=== PATIENT | female | born 1990 | race African-American/Black ===

== ENCOUNTER 2019-06-29 07:56 | Outpatient (CLI) | payer OTHER, SELFPAY ==
--- NOTE | ~2019-06-29 | US_ITS ---
EXAMINATION: US pelvic complete w TV DATE: 06/29/2019 10:26 INDICATION: Left ovarian mass. TECHNIQUE: Multiple transabdominal and endovaginal sonographic images of the pelvis were obtained. COMPARISON: 02/08/2019 FINDINGS: The uterus measures 9.6 x 7.3 x 7.4 cm. The endometrial complex measures 11 mm in thickness. Are het erogeneous iso- to slightly hypoechoic masses consistent with fibroids measuring 4.7 x 3.9 x 4.2 cm a t the right side of the uterine fundus and 4.8 x 4.7 x 4.9 cm at the posterior uterine body. The righ t ovary measures 3.4 x 1.8 x 1.2 cm. The left ovary measures 4.9 x 2.3 x 2.6 cm. Subcentimeter anecho ic cysts are seen at both ovaries. Normal vascular flow to both ovaries on color Doppler. There is a small amount of free fluid in the left deep pelvis. IMPRESSION: 1. Fibroid uterus. 2. Interval resolution of the previously 5.2 cm hypoechoic left ovarian mass which likely represented a hemorrhagic cyst. Reviewed, dictated and finalized at location A. HANDLER SORTER IMPRESSION: 1. Fibroid uterus. 2. Interval resolution of the previously 5.2 cm hypoechoic left ovarian mass wh ich likely represented a hemorrhagic cyst.
== END 2019-06-29 07:57 | disposition home or self-care (01) ==
PROVIDERS: Visit Provider Obstetrics & Gynecology Gynecology
DX: N83.209 Unspecified ovarian cyst, unspecified side (principal); D25.9 Leiomyoma of uterus, unspecified
CPT/HCPCS: 76830; 76856

== ENCOUNTER 2020-03-31 07:25 | Emergency (ER) | payer OTHER, SELFPAY ==
[2020-03-31 08:01] VITALS: BP 136/91; PULSE 100; RESP 18; TEMP 36.9; O2SAT 99
[2020-03-31 09:25] VITALS: BP 122/83; PULSE 65; RESP 16; O2SAT 97
--- NOTE | 2020-03-31 09:30 | ED.EAR ---
HPI - Ear Problem General Chief complaint: Ear Stated complaint: painful knot right side of neck Time Seen by Provider: 03/31/20 09:29 Source: patient Mode of arrival: ambulatory Limitations: no limitations History of Present Illness HPI Narrative: Patient is a healthy 30-year-old who presented for evaluation of right sided lymph node tenderness and ear pain. Patient reports mild discharge from the right ear. No bloody discharge. Patient denies fever, chills, sore throat or congestion. She reports lymph node that is swollen near to her right ear which is tender. Patient denies any cough or shortness of breath. Related Data Allergies Allergy/AdvReac Type Severity Reaction Status Date / Time No Known Allergies Allergy Verified 03/31/20 08:04 Review of Systems Review of Systems: Narrative: CONSTITUTIONAL: Denies fever HEENT: Reports right ear pain, swollen lymph node CARDIOVASCULAR: Denies chest pain RESPIRATORY: Denies cough or dyspnea. GASTROINTESTINAL: Denies abdominal pain SKIN: Denies rash MUSCULOSKELETAL: Denies back pain NEUROLOGIC: Denies headache [facility] Past Medical History Medical History (Updated 03/31/20 @ 10:20 by Marilyn Katz MD) Abnormal uterine bleeding Anemia Fibroids Social History Social History (Updated 03/31/20 @ 10:17 by Marilyn Katz MD) Smoking status: Never smoker Alcohol intake: never Substance use: never Gender identity (if verbalized by the patient): Female Exam Narrative: Exam Narrative: GENERAL: Awake, alert, conversant HEAD: Normocephalic, atraumatic. EYES: PERRLA and EOMI. ENT: Nares clear, no rhinorrhea or epistaxis. Mucous membranes moist. Right tympanic membrane with evidence of serous effusion. No rupture/perforation. No erythema posterior to the pinna. No pinna tenderness with retraction. Left tympanic membrane normal. NECK: Supple. Right anterior cervical lymph node, approximately 5 mm, tender, no fluctuance, mobile. CHEST: No respiratory distress, breathing even and non labored HEART: Regular rate, sinus rhythm ABDOMEN:Non distended, non tender EXTREMITIES: Normal range of motion. No edema. SKIN: Warm, dry, no rash. NEURO:No focal deficits. Alert and oriented x3 Course Vital Signs Vital signs: Vital Signs Temperature 36.9 C 03/31/20 08:01 Pulse Rate 100 03/31/20 08:01 Respiratory Rate 18 03/31/20 08:01 Blood Pressure 136/91 H 03/31/20 08:01 Pulse Oximetry 99 03/31/20 08:01 Temperature 36.9 C 03/31/20 08:01 Pulse Rate 65 03/31/20 09:25 Respiratory Rate 16 03/31/20 09:25 Blood Pressure 122/83 03/31/20 09:25 Pulse Oximetry 97 03/31/20 09:25 Medical Decision Making MDM Narrative Medical decision making narrative: Patient presented for evaluation of tender lymph node and diagnosed with right serous otitis media with reactive lymphadenopathy of the right anterior cervical chain. Patient otherwise hemodynamically stable, well-appearing, no airway compromise. No other Covid type symptoms. Patient will be started on antibiotics and was discharged home. She was vies to have follow-up with a primary care physician and given referral for follow-up. Vital Signs Vital Signs: Vital Signs Temperature 36.9 C 03/31/20 08:01 Pulse Rate 100 03/31/20 08:01 Respiratory Rate 18 03/31/20 08:01 Blood Pressure 136/91 H 03/31/20 08:01 Pulse Oximetry 99 03/31/20 08:01 Temperature 36.9 C 03/31/20 08:01 Pulse Rate 65 03/31/20 09:25 Respiratory Rate 16 03/31/20 09:25 Blood Pressure 122/83 03/31/20 09:25 Pulse Oximetry 97 03/31/20 09:25 Discharge Plan Discharge Clinical Impression: Otitis media Patient Disposition: Home, Self-Care Condition: Stable Instructions: Antibiotic Form, Ear Infection (ED) Additional Instructions: Please contact your primary care physician for follow up from this visit. You have been given a list of primary care providers are accepting new pat
[2020-03-31 11:14] VITALS: BP 117/73; PULSE 68; RESP 16; O2SAT 100
== END 2020-03-31 11:15 | disposition home or self-care (01) ==
PROVIDERS: Emergency Provider Emergency Medicine
DX: H66.91 Otitis media, unspecified, right ear (principal); Z86.2 Personal history of diseases of the blood and blood-forming organs and certain disorders involving the immune mechanism
CPT/HCPCS: 99283

== ENCOUNTER 2020-06-17 07:24 | Outpatient (CLI) | payer OTHER, SELFPAY ==
--- NOTE | ~2020-06-17 | US_ITS ---
US pelvic complete w TV DATE: 06/17/2020 11:42 INDICATION: Pelvic pain TECHNIQUE: Real-time imaging via transabdominal and transvaginal approaches COMPARISON: 06/29/2019 pelvic ultrasound examination FINDINGS: The uterus measures 12.2 cm height, 8.9 cm AP and 10.8 cm transverse dimension. There is he terogeneous echotexture of the uterus with fibroids measuring up to 5.8 and 7.5 cm. The central endometrial echo is not well demonstrated. Endometrial mass cannot be excluded. The right ovary is not visualized. Left ovary measures 2.2 x 1.4 x 1.6 cm. There is vascular flow to the left ovary. No pelvic mass or abnormal pelvic free fluid collection is detected. IMPRESSION: Enlarged fibroid uterus Endometrial echo is not well demonstrated; endometrial mass lesion cannot be excluded. Reviewed, dictated and finalized at Location [facility]. Reviewed, dictated and finalized at location A. SEALER IMPRESSION: Enlarged fibroid uterus Endometrial echo is not well demonstrated; endometrial mass lesion cannot be ex cluded.
== END 2020-06-17 07:25 | disposition home or self-care (01) ==
LOC: ANHIMG 07:33
PROVIDERS: Visit Provider Nurse Practitioner
DX: R10.2 Pelvic and perineal pain (principal); D25.9 Leiomyoma of uterus, unspecified
CPT/HCPCS: 76830; 76856

== ENCOUNTER 2020-11-30 20:06 | Emergency (ER) | payer OTHER, SELFPAY ==
--- NOTE | ~2020-11-30 | CT_ITS ---
EXAMINATION: CT abdomen pelvis w con DATE: 11/30/2020 22:59 INDICATION: Left lower quadrant abdominal pain. TECHNIQUE: Computed tomography (CT) of the abdomen and pelvis was performed with 100 mL Omnipaque-350 intravenous contrast. Automated exposure control and iterative reconstruction technique were employe d. The dose-length product was 1286.94 mGy-cm. COMPARISON: None FINDINGS: Mild dependent atelectasis in the left lower lobe. Heart size is normal. No pericardial or pleural ef fusion. There are a few subcentimeter hepatic cyst. Gallbladder, spleen, pancreas, bilateral adrenal glands and kidneys are normal. Bowels including the appendix are normal 7.0 and 5.4 cm uterine fibroi ds in the posterior and anterior uterine body respectively. Bladder is normal. Small amount of likely physiologic free fluid in the cul-de-sac and left adnexal region. No abscess or free intraperitoneal gas. No pathologically enlarged abdominal or pelvic lymphadenopathy. Very small fat-containing umbil ical hernia. Bones are unremarkable. IMPRESSION: 1. A couple large uterine fibroids and small amount of likely physiologic free fluid in the pelvis. Reviewed, dictated and finalized at location A.
[2020-11-30 20:38] VITALS: BP 122/79; PULSE 104; RESP 18; TEMP 36.5; O2SAT 100
[2020-11-30 21:04] LABS: Basophils Percent Auto 0.1 % (0.2-1.2); Eosinophils Percent Auto 0.1 % (0-4.4); Hematocrit 26.6 % (37.0-47.0); Hemoglobin 7.3 g/dL (12.0-15.0); Immature Granulocyte Absolute 0.03 K/mm3 (0.00-0.031); Immature Granulocyte Percent A 0.4 % (0-0.5); Lymphocytes Absolute Auto 1.06 K/mm3 (0.9-3.2); Lymphocytes Percent Auto 14.9 % (18.3-44.2); Mean Corpuscular HGB Conc 27.4 g/dl (32-36); Mean Corpuscular Hemoglobin 18.5 pg (26-34); Mean Corpuscular Volume 67.3 fl (80-100); Monocytes Absolute Auto 0.4 K/mm3 (0.1-0.6); Neutrophils Absolute Auto 5.6 K/mm3 (1.3-6.7); Neutrophils Percent Auto 78.5 % (45.5-73.1); Platelet Count Result 701 k/mm3 (150-375); Red Blood Count 3.95 M/mm3 (4.2-5.4); Red Cell Distribution Width 19.2 % (11.5-14.5); White Blood Count 7.1 K/mm3 (4.5-10.0)
[2020-11-30 21:15] LABS: Alanine Aminotransferase 19 U/L (4-35); Albumin Level 4.5 g/dL (3.5-5.1); Alkaline Phosphatase 106 U/L (38-126); Anion Gap 10 mmol/L (8-16); Aspartate Amino Transferase 32 U/L (14-36); Bilirubin,Total 0.8 mg/dL (0.2-1.3); Blood Urea Nitrogen 8 mg/dL (7-17); Calcium 9.7 mg/dL (8.4-10.2); Carbon Dioxide 24 mmol/L (22-30); Chloride 103 mmol/L (98-107); Estimated CRCL calculation 126 ml/min; Estimated Glomerular Filt Rate > 60; Glucose 96 mg/dL (65-110); Lipase 79 U/L (23-300); Potassium 4.3 mmol/L (3.4-5.0); Sodium 137 mmol/L (137-145)
[2020-11-30 21:30] LABS: Lymphocytes Absolute Manual 0.92 K/mm3 (1.1-4.5); Monocytes Absolute Manual 0.35 K/mm3 (0.1-0.90); Monocytes Percent Manual 5 % (3-9); Neutrophils Percent Manual 82 % (46-73); Platelet Estimate Increased (Adequate); Total Cells Counted 100
[2020-11-30 21:31] LABS: Anisocytosis 3+ (NORMAL); Hypochromasia 2+ (NORMAL); Ovalocytes 1+ (NORMAL)
[2020-11-30 21:34] LABS: Add Urine Microscopic? YES; Appearance Urine Clear (Clear); Bacteria Urine Trace /hpf; Bilirubin Urine Negative (Negative); Blood Urine Negative (Negative); Color Urine Yellow (Yellow); Glucose Urine UA Negative (Negative); Ketones Urine Negative (Negative); Leukocyte Esterase Ur Negative LEU/UL (Negative); Mucus Urine Heavy /lpf; Nitrate Urine Negative (Negative); Protein Urine 1+ mg/dL (Negative); RBC Urine 0-2 /hpf (0-2); Specific Grav Ur 1.028 (1.001-1.035); Squamous Epithelial Cell Urine Many /hpf (Few)
[2020-11-30 22:11] VITALS: BP 118/74; PULSE 102; RESP 15; O2SAT 100
[2020-11-30 22:24] LABS: Beta HCG Quantitative < 2.39 mIU/ML
--- NOTE | 2020-11-30 22:27 | ED.GENADULT ---
HPI - General Adult General Chief complaint: Abdominal Pain Stated complaint: Abd and pelvic pain Time Seen by Provider: 11/30/20 21:51 History of Present Illness HPI narrative: Patient 21-year-old female presents the emergency department with chief complaint of abdominal pain. The patient reports started having discomfort in the left lower quadrant of her abdomen today patient states that sharp states is worse with movement and improved with rest. Patient denies fever denies dysuria denies vaginal discharge. The patient reports that she has had prior surgeries for 2 ectopic pregnancies. Patient states that the discomfort is not improved by anything. Related Data Home Medications Medication Instructions Recorded Confirmed Multivitamin W/Vitamin C 11/30/20 Allergies Allergy/AdvReac Type Severity Reaction Status Date / Time No Known Allergies Allergy Verified 11/30/20 22:05 Review of Systems Review of Systems: Narrative: A 10 system review of systems was completed on the patient and is negative except for what is stated in the HPI. Nursing and ancillary documentation was reviewed. [facility] Past Medical History Medical History Abnormal uterine bleeding Anemia Fibroids Social History Social History Smoking status: Never smoker Alcohol intake: never Substance use: never Gender identity (if verbalized by the patient): Female Exam Narrative: Exam Narrative: GENERAL: Well-appearing, well-nourished, and in no acute distress. HEAD: Normocephalic, atraumatic. EYES: PERRLA and EOMI. ENT: Nares clear, no rhinorrhea or epistaxis. Mucous membranes moist. NECK: Supple. CHEST: Clear to auscultation. No respiratory distress. HEART: Regular rate and rhythm. No murmur heard. Normal peripheral pulses. ABDOMEN: Soft, tenderness to palpation of the left lower quadrant, nondistended, normal active bowel sounds. EXTREMITIES: Normal range of motion. No edema. SKIN: Warm, dry, no rash. NEURO: No focal deficits. Alert and oriented x3. PSYCH: Normal mood and affect. Course Vital Signs Vital signs: Vital Signs Temperature 36.5 C 11/30/20 20:38 Pulse Rate 104 H 11/30/20 20:38 Respiratory Rate 18 11/30/20 20:38 Blood Pressure 122/79 11/30/20 20:38 Pulse Oximetry 100 11/30/20 20:38 Temperature 36.5 C 11/30/20 20:38 Pulse Rate 102 H 11/30/20 22:11 Respiratory Rate 15 11/30/20 22:11 Blood Pressure 118/74 11/30/20 22:11 Pulse Oximetry 100 11/30/20 22:11 Medical Decision Making Vital Signs Vital Signs: Vital Signs Temperature 36.5 C 11/30/20 20:38 Pulse Rate 104 H 11/30/20 20:38 Respiratory Rate 18 11/30/20 20:38 Blood Pressure 122/79 11/30/20 20:38 Pulse Oximetry 100 11/30/20 20:38 Temperature 36.5 C 11/30/20 20:38 Pulse Rate 102 H 11/30/20 22:11 Respiratory Rate 15 11/30/20 22:11 Blood Pressure 118/74 11/30/20 22:11 Pulse Oximetry 100 11/30/20 22:11 Lab Data Result diagrams: 11/30/20 20:58 11/30/20 20:58 Labs: Lab Results 11/30/20 11/30/20 11/30/20 Range/Units 20:57 20:58 20:58 WBC 7.1 (4.5-10.0) K/mm3 RBC 3.95 L (4.2-5.4) M/mm3 Hgb 7.3 L (12.0-15.0) g/dL Hct 26.6 L (37.0-47.0) % MCV 67.3 L (80-100) fl MCH 18.5 L (26-34) pg MCHC 27.4 L (32-36) g/dl RDW 19.2 H (11.5-14.5) % Plt Count 701 H (150-375) k/mm3 MPV 8.0 (7.4-10.4) fl Immature Gran % (Auto) 0.4 (0-0.5) % Neut % (Auto) 78.5 H (45.5-73.1) % Lymph % (Auto) 14.9 L (18.3-44.2) % Real % (Auto) 6.0 (2.6-8.5) % Eos % (Auto) 0.1 (0-4.4) % Baso % (Auto) 0.1 L (0.2-1.2) % Lymph # (Auto) 1.06 (0.9-3.2) K/mm3 Real # (Auto) 0.4 (0.1-0.6) K/mm3 Eos # (Auto) 0.0 (0-0.3) K/mm3 Baso # (Auto) 0.0 (0.0-0.1) K/mm3 Abs Immat Gran (aut
[2020-11-30] MEDS: SODIUM CHLORIDE 0.9% IV 1,000 ML 999 ML IV CONT (23:22)
[2020-11-30] MEDS: KETOROLAC 30 MG/ML VIAL (*BKC) IV PUSH (23:24)
[2020-11-30] MEDS: ONDANSETRON INJ 4 MG/2 ML VIAL IV PUSH (23:24)
[2020-12-01 01:13] VITALS: BP 110/67; PULSE 95; RESP 16; O2SAT 99
== END 2020-11-30 23:59 | disposition home or self-care (01) ==
PROVIDERS: Emergency Provider Emergency Medicine
DX: R10.32 Left lower quadrant pain (principal); D64.9 Anemia, unspecified
CPT/HCPCS: 36415; 74177; 80053; 81001; 81025; 83690; 84702; 85025; 96361; 96374; 96375; 99284; J1885; J2405; J7030; Q9967

== ENCOUNTER → 2021-11-28 12:42 | Outpatient (CLI) | payer BC, SELFPAY ==
--- NOTE | ~2021-11-28 | US_ITS ---
This report was recreated on 12/13/2021. Original report was signed by by Agus Box M.D. on 11/28/2021 13:58 CDT US pelvic complete w TV DATE: 11/28/2021 13:39 INDICATION: Pelvic pain TECHNIQUE: Real-time imaging via transabdominal and transvaginal approaches COMPARISON: 11/30/2020 CT abdomen pelvis FINDINGS: There is a large lobular uterus measuring up to 11.4 centers height, 8 cm AP dimension with multiple fibroids measuring up to 6 cm. Approximately 2.7 x 6 cm septated left ovarian cyst. The right ovary is not visualized. No abnormal pelvic free fluid collection is detected. IMPRESSION: Lobular enlarged uterus with multiple fibroids measuring up to 6 cm Septated up to 2.7 x 6 cm left ovarian cyst Reviewed, dictated and finalized at Location [facility]. Reviewed, dictated and finalized at location A. Dictated By: Agus Box MD 11/28/21 1352 Signed By: <Electronically signed by Agus Box MD in [place]> 11/28/21 6050 [facility]
--- NOTE | ~2021-11-28 | US_ITS ---
US pelvic complete w TV DATE: 11/28/2021 13:39 INDICATION: Pelvic pain TECHNIQUE: Real-time imaging via transabdominal and transvaginal approaches COMPARISON: 11/30/2020 CT abdomen pelvis FINDINGS: There is a large lobular uterus measuring up to 11.4 centers height, 8 cm AP dimension with multiple fibroids measuring up to 6 cm. Approximately 2.7 x 6 cm septated left ovarian cyst. The right ovary is not visualized. No abnormal pelvic free fluid collection is detected. IMPRESSION: Lobular enlarged uterus with multiple fibroids measuring up to 6 cm Septated up to 2.7 x 6 cm left ovarian cyst Reviewed, dictated and finalized at Location [facility]. Reviewed, dictated and finalized at location A.
== END ==
LOC: EXPGOSH 12:43 → EXPGOSHRAD 12-02 15:04
PROVIDERS: PCP Obstetrics & Gynecology Gynecology; Visit Provider Obstetrics & Gynecology Gynecology
DX: D25.9 Leiomyoma of uterus, unspecified (principal); N83.202 Unspecified ovarian cyst, left side
CPT/HCPCS: 76830; 76856

== ENCOUNTER 2021-12-03 08:17 | Outpatient (CLI) | payer BC, SELFPAY ==
[2021-12-03 08:54] LABS: Hematocrit 26.9 % (37.0-47.0); Hemoglobin 7.1 g/dL (12.0-15.0); Mean Corpuscular HGB Conc 26.4 g/dl (32-36); Mean Corpuscular Hemoglobin 17.5 pg (26-34); Mean Corpuscular Volume 66.3 fl (80-100); Mean Platelet Volume 8.3 fl (7.4-10.4); Platelet Count Result 641 k/mm3 (150-375); Red Blood Count 4.06 M/mm3 (4.2-5.4); Red Cell Distribution Width 18.6 % (11.5-14.5); White Blood Count 5.5 K/mm3 (4.5-10.0)
== END 2021-12-03 08:18 | disposition home or self-care (01) ==
LOC: ANHLAB 08:21
PROVIDERS: PCP Obstetrics & Gynecology Gynecology; Visit Provider Obstetrics & Gynecology Gynecology
DX: N92.0 Excessive and frequent menstruation with regular cycle (principal)
CPT/HCPCS: 36415; 85027

== ENCOUNTER 2021-12-09 11:17 | Outpatient (CLI) | payer BC, SELFPAY ==
[2021-12-12 02:49] LABS: CA-125 24 U/mL (<35)
== END 2021-12-09 11:18 | disposition home or self-care (01) ==
PROVIDERS: PCP Obstetrics & Gynecology Gynecology; Visit Provider Obstetrics & Gynecology Gynecology
DX: R19.00 Intra-abdominal and pelvic swelling, mass and lump, unspecified site (principal)
CPT/HCPCS: 36415; 86304

== ENCOUNTER → 2022-01-22 11:20 | Outpatient (CLI) | payer BC, SELFPAY ==
--- NOTE | ~2022-01-22 | US_ITS ---
EXAMINATION: US pelvic complete w TV DATE: 01/22/2022 12:01 INDICATION: PELVIC PAIN TECHNIQUE: Multiple transabdominal and endovaginal sonographic images of the pelvis were obtained. COMPARISON: 11/28/2021 FINDINGS: Uterus: 12.1 x 8.1 x 7.4 cm. Endometrial complex measures 9 mm. Uterine fibroids are present, the lar gest measuring up to 6.6 and 4. cm. Right Ovary: 3.4 x 1.8 x 1.9 cm. Vascular flow is present. 2.6 x 1.2 x 1.4 cm simple cyst. Left Ovary: 3.0 x 1.2 x 1.9 cm. Vascular flow is present. There is no free fluid in the pelvis. IMPRESSION: Interval resolution of the previously detected left ovarian cyst. Fibroid uterus. Reviewed, dictated and finalized at location K. IMPRESSION: Interval resolution of the previously detected left ovarian cyst. Fibroid uteru s.
== END ==
PROVIDERS: PCP Internal Medicine; Visit Provider Obstetrics & Gynecology Gynecology
DX: N83.201 Unspecified ovarian cyst, right side (principal); D25.9 Leiomyoma of uterus, unspecified
CPT/HCPCS: 76830; 76856

== ENCOUNTER 2022-10-06 02:56 | Emergency (ER) | payer BC, SELFPAY ==
--- NOTE | ~2022-10-06 | CT_ITS ---
EXAMINATION: CT abdomen pelvis w con DATE: 10/06/2022 07:02 INDICATION: Right lower quadrant abdominal pain. TECHNIQUE: Computed tomography (CT) of the abdomen and pelvis was performed with 100 mL Omnipaque 350 intravenous contrast. Automated exposure control and iterative reconstruction technique were employe d. The dose-length product was 1134.44 mGy-cm. COMPARISON: CT abdomen and pelvis 11/30/2020 FINDINGS: The visualized portions of the lung bases demonstrate minimal atelectasis. No pleural effus ion. The heart size is normal. No pericardial effusion. There are cysts in the liver measuring up to 7 mm. The gallbladder, spleen, pancreas, adrenal glands, and kidneys are normal. There are fibroids i n uterus measuring up to 7.6 cm. The appendix is normal. There are dilated loops of jejunum in left a bdomen with desiccated stool suggesting slow transit. There is a moderate volume of stool in the colo n. There is physiologic fluid in the pelvis. There are no pathologically enlarged lymph nodes. The deandra roxana are unremarkable. IMPRESSION: 1. Dilated loops of jejunum in left abdomen with desiccated stool suggesting slow transit, likely mateo namic ileus. 2. Uterine fibroids. Reviewed, dictated and finalized at location A. IMPRESSION: 1. Dilated loops of jejunum in left abdomen with desiccated stool suggesting sl ow transit, likely adynamic ileus. 2. Uterine fibroids.
[2022-10-06 03:18] VITALS: BP 127/88; PULSE 102; RESP 24; TEMP 36.7; O2SAT 99
[2022-10-06] MEDS: MORPHINE SULFATE (*CRX) 4 MG/ML INJ IV PUSH (03:37)
[2022-10-06] MEDS: ONDANSETRON INJ 4 MG/2 ML VIAL IV PUSH (03:37)
[2022-10-06] MEDS: SODIUM CHLORIDE 0.9% IV 1,000 ML 999 ML IV CONT (03:37)
--- NOTE | 2022-10-06 03:37 | ED.GENADULT ---
HPI - General Adult General Chief complaint: Abdominal Pain Stated complaint: pelvic pain Time Seen by Provider: 10/06/22 03:06 History of Present Illness HPI narrative: Patient is a 32-year-old female who presents the emergency department with chief complaint of abdominal pain. Patient reports that for the last several days she had an uncomfortable feeling in her pelvis patient states that he got worse today reports that she is not able to get comfortable and reports the pain does radiate to her back. Patient reports that it is a sharp pain and reports that she has had no vomiting no diarrhea denies blood in her stool or black tarry stool denies hematuria. Related Data Home Medications Medication Instructions Recorded Confirmed Multivitamin W/Vitamin C 11/30/20 Allergies Allergy/AdvReac Type Severity Reaction Status Date / Time No Known Allergies Allergy Verified 11/30/20 22:05 Review of Systems Review of Systems: A 10 system review of systems was completed on the patient and is negative except for what is stated in the HPI. Nursing and ancillary documentation was reviewed. PMFSH Past Medical History Medical History Abnormal uterine bleeding Anemia Fibroids Social History Social History Smoking status: Never smoker Alcohol intake: never Substance use: never Gender identity (if verbalized by the patient): Female Exam Narrative: GENERAL: Well-appearing, well-nourished, and in no acute distress. HEAD: Normocephalic, atraumatic. EYES: PERRLA and EOMI. ENT: Nares clear, no rhinorrhea or epistaxis. Mucous membranes moist. NECK: Supple. CHEST: Clear to auscultation. No respiratory distress. HEART: Regular rate and rhythm. No murmur heard. Normal peripheral pulses. ABDOMEN: Soft, tender in the right upper quadrant right lower quadrant suprapubic and left lower quadrant, nondistended, normal active bowel sounds. EXTREMITIES: Normal range of motion. No edema. SKIN: Warm, dry, no rash. NEURO: No focal deficits. Alert and oriented x3. PSYCH: Normal mood and affect. Course Vital Signs Vital signs: Vital Signs Temperature 36.7 C 10/06/22 03:18 Pulse Rate 102 H 10/06/22 03:18 Respiratory Rate 24 H 10/06/22 03:18 Blood Pressure 127/88 10/06/22 03:18 Pulse Oximetry 99 10/06/22 03:18 Temperature 36.7 C 10/06/22 03:18 Pulse Rate 89 10/06/22 06:38 Respiratory Rate 16 10/06/22 06:38 Blood Pressure 125/70 10/06/22 06:38 Pulse Oximetry 100 10/06/22 06:38 Medical Decision Making MDM Narrative Medical decision making narrative: Differential diagnosis includes cholelithiasis, cholecystitis, appendicitis, ovarian cyst, diverticulitis. After studies were obtained on the patient had a negative test white blood cell count was 7.9 hemoglobin was 11.0 electrolytes within normal limits liver enzymes were within normal limits lipase was normal urinalysis showed just +1 ketones otherwise no evidence of UTI CT scan of the abdomen pelvis has been ordered CT scan showed evidence of an ileus. The patient be started on Reglan and a clear liquid diet Vital Signs Vital Signs: Vital Signs Temperature 36.7 C 10/06/22 03:18 Pulse Rate 102 H 10/06/22 03:18 Respiratory Rate 24 H 10/06/22 03:18 Blood Pressure 127/88 10/06/22 03:18 Pulse Oximetry 99 10/06/22 03:18 Temperature 36.7 C 10/06/22 03:18 Pulse Rate 89 10/06/22 06:38 Respiratory Rate 16 10/06/22 06:38 Blood Pressure 125/70 10/06/22 06:38 Pulse Oximetry 100 10/06/22 06:38 Lab Data 10/06/22 03:40 10/06/22 03:40 Labs: Lab Results 10/06/22 10/06/22 Range/Units 03:40 03:59 WBC 7.9 (4.5-10.0) K/mm3 RBC 4.02 L (4.2-5.4) M/mm3 Hgb 11.0 L D (12.0-15.0) g/dL Hct 32.6 L (37.0-47.0) % MCV
[2022-10-06 03:47] LABS: Basophils Percent Auto 0.1 % (0.2-1.2); Eosinophils Percent Auto 0.4 % (0-4.4); Hematocrit 32.6 % (37.0-47.0); Immature Granulocyte Absolute 0.02 K/mm3 (0.00-0.031); Immature Granulocyte Percent A 0.3 % (0-0.5); Lymphocytes Absolute Auto 2.51 K/mm3 (0.9-3.2); Lymphocytes Percent Auto 31.9 % (18.3-44.2); Mean Corpuscular HGB Conc 33.7 g/dl (32-36); Mean Corpuscular Hemoglobin 27.4 pg (26-34); Mean Corpuscular Volume 81.1 fl (80-100); Mean Platelet Volume 8.6 fl (7.4-10.4); Monocytes Absolute Auto 0.6 K/mm3 (0.1-0.6); Neutrophils Absolute Auto 4.7 K/mm3 (1.3-6.7); Neutrophils Percent Auto 59.3 % (45.5-73.1); Platelet Count Result 606 k/mm3 (150-375); Red Blood Count 4.02 M/mm3 (4.2-5.4); Red Cell Distribution Width 13.3 % (11.5-14.5); White Blood Count 7.9 K/mm3 (4.5-10.0)
[2022-10-06 04:01] LABS: Alanine Aminotransferase 20 U/L (6-35); Albumin Level 4.3 g/dL (3.5-5.1); Alkaline Phosphatase 96 U/L (38-126); Anion Gap 8 mmol/L (8-16); Aspartate Amino Transferase 33 U/L (14-36); Bilirubin,Total 0.6 mg/dL (0.2-1.3); Blood Urea Nitrogen 16 mg/dL (7-17); Calcium 9.3 mg/dL (8.4-10.2); Carbon Dioxide 22 mmol/L (22-30); Chloride 104 mmol/L (98-107); Estimated CRCL calculation 101 ml/min; Estimated Glomerular Filt Rate > 60; Glucose 110 mg/dL (65-110); Lipase 84 U/L (23-300); Sodium 134 mmol/L (137-145)
[2022-10-06 04:11] LABS: Appearance Urine Cloudy (Clear); Bacteria Urine Rare /hpf; Bilirubin Urine Negative (Negative); Blood Urine Negative (Negative); Color Urine Yellow (Yellow); Glucose Urine UA Negative (Negative); Ketones Urine 1+ mg/dL (Negative); Leukocyte Esterase Ur Negative LEU/UL (Negative); Nitrate Urine Negative (Negative); Non Pathogenic Casts 0-2; Protein Urine Negative (Negative); RBC Urine 0-2 /hpf (0-2); Specific Grav Ur 1.009 (1.001-1.035); Squamous Epithelial Cell Urine Moderate /hpf (Few); Urobilinogen Urine 0.2 mg/dL (<2.0); WBC Urine 0-5 /hpf
[2022-10-06 04:21] VITALS: PULSE 87; RESP 18; O2SAT 98
[2022-10-06 04:25] LABS: Add Urine Microscopic? YES
[2022-10-06 06:38] VITALS: BP 125/70; PULSE 89; RESP 16; O2SAT 100
[2022-10-06 07:28] VITALS: PULSE 77; RESP 17
[2022-10-06 07:30] VITALS: BP 126/82; PULSE 76; RESP 14
== END 2022-10-06 07:42 | disposition home or self-care (01) ==
PROVIDERS: Emergency Provider Emergency Medicine; PCP Internal Medicine
DX: K56.0 Paralytic ileus (principal); R10.84 Generalized abdominal pain; D64.9 Anemia, unspecified
CPT/HCPCS: 36415; 74177; 80053; 81001; 81025; 83690; 85025; 96361; 96374; 96375; 99284; J2270; J2405; J7030; Q9967

== ENCOUNTER 2022-10-08 12:30 | Outpatient (CLI) | payer BC, SELFPAY ==
--- NOTE | ~2022-10-08 | US_ITS ---
EXAMINATION: US pelvic complete DATE: 10/08/2022 13:34 INDICATION: Uterine hypertrophy Comparison:Ultrasound dated 01/22/2022 TECHNIQUE: Multiple transabdominal and endovaginal sonographic images of the pelvis performed. FINDINGS: The uterus measures 11.2 x 5.9 x 4.1 cm.. The endometrial complex measures 1.7 cm. There ar e multiple uterine fibroids of varying size and echogenicity. Largest fibroid measures 8.6 x 8.2 x 7. 7 cm. There is a partially calcified fibroid measuring 3.4 cm maximum dimension.. The right ovary measures 3.4 x 1.8 x 1.9 cm and the left ovary measures 3 x 1.2 x 1.9 cm. There are small follicles in each ovary. Normal doppler signal in both ovaries. There is a right ovarian cyst m easuring 2.6 cm. There is no free fluid in the pelvis. There are no abnormal masses seen on either side. IMPRESSION: 1. Enlarged uterus containing multiple fibroids, largest measuring 8.6 cm. 2: Endometrial thickening measuring 1.7 cm. 3: Right ovarian cyst measuring 2.6 cm. Reviewed, dictated and finalized at location B.
== END 2022-10-08 12:31 | disposition home or self-care (01) ==
PROVIDERS: PCP Internal Medicine; Visit Provider Nurse Practitioner
DX: N85.2 Hypertrophy of uterus (principal); D25.9 Leiomyoma of uterus, unspecified; N92.0 Excessive and frequent menstruation with regular cycle; N83.201 Unspecified ovarian cyst, right side
CPT/HCPCS: 76856

== ENCOUNTER 2023-02-04 18:44 | Emergency (ER) | payer BC, SELFPAY ==
--- NOTE | ~2023-02-04 | US_ITS ---
US pelvic complete w TV DATE: 02/04/2023 23:46 INDICATION: Pelvic pain. Known fibroids. TECHNIQUE: Real-time imaging via transabdominal and transvaginal approaches COMPARISON: 10/04/2022 pelvic ultrasound complete FINDINGS: Enlarged fibroid uterus is again noted, the uterus measuring up to 12 cm height, 9.9 cm tra nsverse and 5.1 cm anteroposterior dimension. The largest fibroids measure up to 8 and 5 cm approxima tely. Central endometrial echo is normal. Right ovary 2.7 x 2.0 x 2.2 cm, with vascular flow. Left ovary 3.7 x 1.5 x 2.3 cm with vascular flow. No significant pelvic free fluid collection is noted. IMPRESSION: Enlarged fibroid uterus Reviewed, dictated and finalized at Location [facility]. Reviewed, dictated and finalized at location A. IMPRESSION: Enlarged fibroid uterus
[2023-02-04 19:11] VITALS: BP 119/75; PULSE 99; RESP 18; TEMP 36.8; O2SAT 99
[2023-02-04 19:30] LABS: Basophils Percent Auto 0.2 % (0.2-1.2); Eosinophils Percent Auto 0.3 % (0-4.4); Hemoglobin 9.4 g/dL (12.0-15.0); Immature Granulocyte Absolute 0.04 K/mm3 (0.00-0.031); Immature Granulocyte Percent A 0.4 % (0-0.5); Lymphocytes Absolute Auto 1.81 K/mm3 (0.9-3.2); Lymphocytes Percent Auto 19.1 % (18.3-44.2); Mean Corpuscular HGB Conc 29.4 g/dl (32-36); Mean Corpuscular Hemoglobin 22.9 pg (26-34); Mean Platelet Volume 8.5 fl (7.4-10.4); Monocytes Absolute Auto 0.7 K/mm3 (0.1-0.6); Monocytes Percent Auto 7.6 % (2.6-8.5); Neutrophils Absolute Auto 6.9 K/mm3 (1.3-6.7); Neutrophils Percent Auto 72.4 % (45.5-73.1); Platelet Count Result 529 k/mm3 (150-375); Red Cell Distribution Width 16.1 % (11.5-14.5); White Blood Count 9.5 K/mm3 (4.5-10.0)
[2023-02-04 19:37] LABS: Add Urine Microscopic? YES; Appearance Urine Clear (Clear); Bacteria Urine None Seen /hpf; Bilirubin Urine Negative (Negative); Blood Urine Negative (Negative); Color Urine Yellow (Yellow); Glucose Urine UA Negative (Negative); Ketones Urine 1+ mg/dL (Negative); Leukocyte Esterase Ur Trace LEU/UL (Negative); Nitrate Urine Negative (Negative); Non Pathogenic Casts 0-2; Protein Urine Negative (Negative); RBC Urine 0-2 /hpf (0-2); Specific Grav Ur 1.016 (1.001-1.035); Squamous Epithelial Cell Urine Occasional /hpf (Few); Urobilinogen Urine 0.2 mg/dL (<2.0); WBC Urine 0-5 /hpf
[2023-02-04 19:43] LABS: Alanine Aminotransferase 17 U/L (6-35); Albumin Level 4.6 g/dL (3.5-5.1); Alkaline Phosphatase 104 U/L (38-126); Anion Gap 9 mmol/L (8-16); Aspartate Amino Transferase 27 U/L (14-36); Blood Urea Nitrogen 9 mg/dL (7-17); Calcium 9.6 mg/dL (8.4-10.2); Carbon Dioxide 22 mmol/L (22-30); Chloride 105 mmol/L (98-107); Estimated Glomerular Filt Rate > 60; Glucose 87 mg/dL (65-110); Lipase 31 U/L (23-300); Sodium 136 mmol/L (137-145)
[2023-02-04 19:54] LABS: Burr Cells 1+ (NORMAL); Hypochromasia 1+ (NORMAL); Ovalocytes 1+ (NORMAL); Platelet Estimate Increased (Adequate); Schistocytes Rare (NORMAL)
--- NOTE | 2023-02-05 00:09 | ED.ABDPAIN ---
HPI - Abdominal Pain General Chief Complaint: Abdominal Pain Stated Complaint: Left pelvic pain Time Seen by Provider: 02/04/23 22:52 Source: patient Mode of arrival: ambulatory Limitations: no limitations History of Present Illness HPI narrative: This is a 32-year-old female that presents to the emergency department for pelvic pain. Ongoing since this afternoon. Reports the pain is sharp in nature. No associated symptoms. Denies fevers, vomiting, dysuria, or hematuria. Related Data Home Medications Medication Instructions Recorded Confirmed Multivitamin W/Vitamin C 11/30/20 Allergies Allergy/AdvReac Type Severity Reaction Status Date / Time No Known Allergies Allergy Verified 02/04/23 18:45 Review of Systems Review of Systems: CONSTITUTIONAL: Denies fever GASTROINTESTINAL: Reports abdominal pain. Denies nausea, vomiting, or diarrhea. GENITOURINARY: Denies dysuria or hematuria. All systems reviewed & are unremarkable except as noted in HPI and below PMFSH Past Medical History Medical History Abnormal uterine bleeding Anemia Fibroids Social History Social History Smoking status: Never smoker Alcohol intake: never Substance use: never Gender identity (if verbalized by the patient): Female Exam Narrative: GENERAL: Well-appearing, well-nourished, and in no acute distress. HEAD: Normocephalic, atraumatic. EYES: EOMI. CHEST: Clear to auscultation. No respiratory distress. No wheezes rales or rhonchi HEART: Regular rate and rhythm. No murmur heard. Normal peripheral pulses. ABDOMEN: Soft, nontender, nondistended, normal active bowel sounds. EXTREMITIES: Normal range of motion. No edema. SKIN: Warm, dry, no rash. NEURO: No focal deficits. Alert and oriented x3. PSYCH: Normal mood and affect Course Course Emergency Course: Patient was updated on work-up. Offered further evaluation with CT scan. She declines at this time. Reports she would like to go home and have outpatient follow up. Vital Signs Vital signs: Vital Signs Temperature 98.3 F 02/04/23 19:11 Pulse Rate 99 02/04/23 19:11 Respiratory Rate 18 02/04/23 19:11 Blood Pressure 119/75 02/04/23 19:11 Pulse Oximetry 99 02/04/23 19:11 Oxygen Delivery Room Air 02/04/23 19:11 Temperature 98.3 F 02/04/23 19:11 Pulse Rate 99 02/04/23 19:11 Respiratory Rate 18 02/04/23 19:11 Blood Pressure 119/75 02/04/23 19:11 Pulse Oximetry 99 02/04/23 19:11 Oxygen Delivery Room Air 02/04/23 19:11 MDM - Abdominal Pain MDM Narrative Medical decision making narrative: Patient presents to the emergency department for pelvic pain. Ongoing today. She is afebrile and nontoxic-appearing. Her vitals are stable. CBC without leukocytosis. Does show microcytic anemia with hemoglobin of 9.4. Patient does have known history of anemia due to her heavy menstrual cycle. Metabolic panel and lipase without concerning findings. UA without evidence of infection. test is negative. Pelvic ultrasound shows enlarged fibroid uterus. Patient was updated on work-up. Offered further evaluation with CT scan. She declines at this time. Reports she would like to go home and have outpatient follow up. She is to follow up with her shearing machine feeder. She was given warnings to return to the ER Differential Diagnosis Differential diagnosis: Likely abdominal pain, calculus of kidney, constipation and other (UTI, ovarian cyst, endometriosis) Lab Data Attestation: I reviewed the patient's lab results. 02/04/23 19:19 02/04/23 19:19 Labs: Lab Results 02/04/23 Range/Units 19:19 WBC 9.5 (4.5-10.0) K/mm3 RBC 4.10 L (4.2-5.4) M/mm3 Hgb 9.4 L (12.0-15.0) g/dL Hct 32.0 L (37.0-47.0) % MCV 78.0 L (80-100) fl MCH 22.9 L (26-34) pg MCHC 29.4 L (32-36)
[2023-02-05 01:13] VITALS: BP 120/86; PULSE 68; RESP 16; TEMP 37.2; O2SAT 98
== END 2023-02-05 01:14 | disposition home or self-care (01) ==
PROVIDERS: Student in an Organized Health Care Education/Training Program; Emergency Provider Physician Assistant; PCP Internal Medicine
DX: R10.2 Pelvic and perineal pain (principal); D64.9 Anemia, unspecified; D25.9 Leiomyoma of uterus, unspecified
CPT/HCPCS: 36415; 76830; 76856; 80053; 81001; 81025; 83690; 85025; 99284

== ENCOUNTER 2024-12-18 09:55 | Emergency (ER) | payer BC, SELFPAY ==
--- OUTSIDE RECORDS SUMMARY | 2024-12-18 09:58 | XMS_ITS | Encounter Summary ---
Author Organization [facility] - [facility] Address [address] [place] [address] Care Team Providers Care Hand Quilter Name Role Phone Nickolas Fuller MD Primary Care Provider Taylor Escalera MD Primary Care Provider + Encounter Details Date Type Department Care Team (Late st Contact Info) Description 06/09/2022 MyChart Message Enc [facility] Medical Group Multispecialty Care - [place] [address] [address] [place] [address] Nickolas Fuller MD [address] [place] [address] [address] [place] [address] Weight loss Social History Tobacco Use Types Packs/Day Years Used Date Smoking Tobacco: Never Smokeless Tobacco: Never Comments:counseled by Dr Vicki mclaughlin Alcohol Use Standard Drinks/Week Comments Not Currently 0 (1 standard drink = 0.6 oz pur e alcohol) PHQ-2 Answer Date Recorded PHQ-2 Score - If the patient scores above 3, please move on to questions 3-9 2 01/07/2022 Comments No Sex and Gender Information Value Date Recorded Sex Assigned at Not on file Legal Sex Female 2:55 PM CDT Gender Identity Not on file Sexual Orientation Not on file COVID-19 Exposure Response Date Recorded In the last 10 days, have yo u been in contact with someone who was confirmed or suspected to have Coronavirus/COVID-19? No / Unsure 05/16/2022 2:45 PM NUISANCE WILDLIFE TRAPPER documented as of this encounter Plan of Treatment Not on file documented as of this encounter Visit Diagnoses Not on filedocumented in this encounter Additional Health Concerns Infection Onset Date Last Indicated Resolved Time COVID-19 Rule Out 12/08/2023 12/08/2023 12/08/2023 3:53 PM CDT documented as of this encounter Care Teams Hand Quilter Relationship Specialty Start Date End Date Nickolas Fuller MD [address] [facility] [address] [place] [address] PCP - General INTERNAL MEDICINE 12/10/21 06/15/24 Taylor Escalera MD [address] [facility] [place] [facility] [address] [place] [address] PCP - General FAMILY PRACTICE 06/16/24 documented as of this encounter
--- OUTSIDE RECORDS SUMMARY | 2024-12-18 09:58 | XMS_ITS | Encounter Summary ---
Author Organization [facility] Address [address] [place] [address] Care Team Providers Care Cashier General Name Role Phone Nickolas Fuller MD Primary Care Provider [phone] Taylor Escalera MD Primary Care Provider + Encounter Details Date Type Department Care Team (Late st Contact Info) Description 01/08/2022 Therapy Plan [facility] [place] [address] Jerson Kaufman, DO [address] [place] [address] Social History Tobacco Use Types Packs/Day Years [...] suspected to have Coronavirus/COVID-19? No / Unsure 01/07/2022 7:25 AM CDT documented as of this encounter Plan of Treatment Not on file documented as of this encounter Visit Diagnoses Diagnosis Iron deficiency anemia- Primary Iron deficiency anemia, unspecified documented in this encounter Additional Health Concerns Infection Onset Date Last Indicated Resolved Time COVID-19 Rule Out 12/08/2023 12/08/2023 12/08/2023 3:53 PM CDT documented as of this encounter Care Teams Cashier General Relationship Specialty Start Date End Date Nickolas Fuller MD [address] [facility] [address] [place] [address] PCP - General INTERNAL MEDICINE 12/10/21 06/15/24 Taylor Escalera MD [address] [facility] [address] [place] [address] PCP - General FAMILY PRACTICE 06/16/24 documented as of this encounter
--- OUTSIDE RECORDS SUMMARY | 2024-12-18 09:58 | XMS_ITS | Encounter Summary ---
Author Organization [facility] - [facility] Address [address] [place] [address] Care Team Providers Care Coil Tier Name Role Phone Nickolas Fuller MD Primary Care Provider [phone] Taylor Escalera MD Primary Care Provider + Encounter Details Date Type Department Care Team (Late st Contact Info) Description 02/14/2022 MyChart Message Enc [facility] Medical Group Multispecialty Care - [place] [address] [address] [place] [address] Nickolas Fuller MD [address] [place] [address] [address] [place] [address] Leg pain Social History Tobacco Use Types Packs/Day Years [...] suspected to have Coronavirus/COVID-19? No / Unsure 02/05/2022 9:48 AM CDT documented as of this encounter Plan of Treatment Not on file documented as of this encounter Visit Diagnoses Not on filedocumented in this encounter Additional Health Concerns Infection Onset Date Last Indicated Resolved Time COVID-19 Rule Out 12/08/2023 12/08/2023 12/08/2023 3:53 PM CDT documented as of this encounter Care Teams Coil Tier Relationship Specialty Start Date End Date Nickolas Fuller MD [address] [facility] [address] [place] [address] PCP - General INTERNAL MEDICINE 12/10/21 06/15/24 Taylor Escalera MD [address] [facility] [address] [place] [address] PCP - General FAMILY PRACTICE 06/16/24 documented as of this encounter
--- OUTSIDE RECORDS SUMMARY | 2024-12-18 09:58 | XMS_ITS | Clinical Summary ---
Author Organization [facility] Address [address] [place] [address] Care Team Providers Care Furnace Charging Machine Operator Name Role Phone Nickolas Fuller MD Primary Care Provider [phone] Allergies No known active allergies Medications tranexamic acid (LYSTEDA) 650 mg tablet Take 2 tablets (1,300 mg total) by mouth 3 (three) times a day as needed Active acetaminophen (TYLENOL) 500 mg tablet Take 2 tablets (1,000 mg total) by mouth every 6 (six) hours as needed for pain 60 tablet 4 Active Additional Information Patient not taking.Reported on 08/28/2023 oxyCODONE (ROXICODONE) 5 mg immediate release tabletIndicatio ns:Pain Take 1 tablet (5 mg total) by mouth every 4 (four) hours as needed for pain 15 tablet 4 Active Additional Information Patient not taking.Reported on 08/28/2023 polyethylene glycol (MIRALAX) 17 gram/dose bulk powder Take 17 g by mouth daily 116 g 4 Active Additional Information Patient not taking.Reported on 08/28/2023 Active Problems Problem Noted Date Diagnosed Date Fibroid 06/22/2023 Intramural, submucous, and subserous leiomyoma o f uterus 06/04/2023 Constipation 01/07/2022 Anxiety 01/07/2022 Iron deficiency anemia 04/29/2016 Immunizations Immunization Administration Dates Next Due Influenza, Unspecified 04/29/2016,03/27/2016, Tdap 01/07/2022 Surgical History Surgery Date Site/Laterality Comments ECTOPIC SURGERY x 2, 2011, 2013 Medical History Medical History Date Comments Anemia Uterine fibroid Social History Tobacco Use Types Packs/Day Years Used Date Smoking Tobacco: Never Tobacco Cessation:Counseling Given: Not Answered AUDIT-C Answer Date Recorded Q1: How often do you have a drink containing alcohol? Never 07/29/2023 Q2: How many drinks containi ng alcohol do you have on a typical day when you are drinking? Patient does not drink Q3: How often do you have si x or more drinks on one occasion? Never 07/29/2023 Personal Safety Answer Date Recorded Have you ever been in or are you currently in a harmful physical or emotional relationship or is someone making you feel afraid or unsafe? Denies 07/29/2023 Comments No Sex and Gender Information Value Date Recorded Sex Assigned at Not on file Legal Sex Female 8:18 AM CDT Gender Identity Not on file Sexual Orientation Not on file Obstetrics History Last Filed Vital Signs Vital Sign Reading Time Taken Comments Blood Pressure 130/90 08/01/2024 9:34 AM CDT Pulse 90 08/01/2024 9:34 AM CDT Temperature 36.8 C (98.3 F) 08/01/2024 9:34 AM CDT Respiratory Rate 20 08/01/2024 9:34 AM CDT Oxygen Saturation 99% 08/01/2024 9:34 AM CDT Inhaled Oxygen Concentration - - Weight 117.9 kg (260 lb) 08/01/2024 9:34 AM CDT Height 167.6 cm (5' 6) 05/06/2024 11:48 AM HOB MILL OPERATOR Body Mass Index 41.97 05/06/2024 11:48 AM HOB MILL OPERATOR Plan of Treatment Health Maintenance Due Date Last Done Comments Cervical Cancer Screening 1991 Depression Screening 1991 Hepatitis C Screening 1991 Varicella Vaccines (1 of 2 - 13+ 2-dose series) 02/29/2004 Hepatitis B Screening 2009 Regular Well Visit/Exam 18-64 2009 HPV Vaccines (1 - 3-dose SCD M series) 2018 Influenza Vaccine (#1) 2025 6, 03/27/2016, 10/16/2015 DTaP/Tdap/Td Vaccine (2 - Td or Tdap) 01/08/2032 01/07/2022 Pneumococcal vaccine <65 Aged Out No longer eligible based on patient's age to complete this topic Insurance [employer] CHOICE OOS JRKICKZ OOS Care Teams Furnace Charging Machine Operator Relationship Specialty Start Date End Date Nickolas Fuller MD [address] [place] [address] PCP - General Internal Medicine 02/06/23
--- OUTSIDE RECORDS SUMMARY | 2024-12-18 09:58 | XMS_ITS | Clinical Summary ---
Author Organization [facility] Address [address] [place] [address] Care Team Providers Care Telegrapher Agent Name Role Phone Taylor Escalera MD Primary Care Provider + Allergies No known active allergies Medications No known medications Active Problems Problem Noted Date Diagnosed Date Iron deficiency anemia secon chikis to inadequate dietary iron intake 06/21/2024 Iron deficiency anemia 01/08/2022 Anxiety 01/07/2022 Constipation 01/07/2022 Immunizations Immunization Administration Dates Next Due Influenza (Generic) 04/29/2016,03/27/2016,2015 Tdap (Adacel) 01/07/2022 Family History Medical History Relation Comments Diabetes Father Prostate Cancer Father No Known Problems Mother Cancer Paternal Aunt Colon Cancer Paternal Aunt GI Paternal Aunt Relation Status Comments Father Alive Maternal Aunt Alive Mother Alive Paternal Aunt Alive Social History Tobacco Use Types Packs/Day Years Used Date Smoking Tobacco: Never Passive Smoke Exposure: Past Smokeless Tobacco: Never Tobacco Cessation:Counseling Given: No Comments:counseled by Dr Fuller Alcohol Use Standard Drinks/Week Comments Not Currently 0 (1 standard drink = 0.6 oz pur e alcohol) PHQ-2 Answer Date Recorded Patient Health Questionnaire-2 Score 1 06/16/2024 Comments No Sex and Gender Information Value Date Recorded Sex Assigned at Not on file Legal Sex Female 2:55 PM CDT Gender Identity Not on file Sexual Orientation Not on file Last Filed Vital Signs Vital Sign Reading Time Taken Comments Blood Pressure 141/84 07/13/2024 10:01 AM BALANCE SHEET ANALYST Pulse 88 07/13/2024 10:01 AM BALANCE SHEET ANALYST Temperature 36.4 C (97.6 F) 07/13/2024 10:01 AM BALANCE SHEET ANALYST Respiratory Rate 20 07/06/2024 10:28 AM BALANCE SHEET ANALYST Oxygen Saturation 96% 07/13/2024 10:01 AM BALANCE SHEET ANALYST Inhaled Oxygen Concentration - - Weight 128.4 kg (283 lb) 06/29/2024 11:16 AM BALANCE SHEET ANALYST Height 167.6 cm (5' 6) 06/29/2024 11:16 AM BALANCE SHEET ANALYST Body Mass Index 45.68 06/29/2024 11:16 AM BALANCE SHEET ANALYST Plan of Treatment Health Maintenance Due Date Last Done Comments Hepatitis B Vaccines (1 of 3 - 19+ 3-dose series) 2010 HPV Vaccines (1 - 3-dose SCDM series) 2018 Cervical Cancer Screening Pap with HPV Testing (Age 30 to 64) Every 5 Years 2021 COVID-19 Vaccine ( season) 2024 Annual Physical 10/20/2024 10/21/2023, 12/10/2021 Cervical Cancer Screening Pap Smear (Age 30 to 64) Every 3 Years 03/24/2026 03/24/2023, 03/24/2023, 02/20/2022, Additional history exists Cervical Cancer Screening with HPV 03/24/2026 DTaP, Tdap and Td Vaccines (2 - Td or Tdap) 01/08/2032 01/07/2022 Hepatitis C Completed 12/10/2021 PHQ-2 (Physician [place]) Completed 06/16/2024 Meningococcal B Vaccine Aged Out No l onger eligible based on patient's age to complete this topic Meningococcal Vaccine Aged Out No omar natali eligible based on patient's age to complete this topic Pneumococcal Vaccine: Pediatrics (0 to 5 Years) and At-Risk Patients (6 to 49 Years) Aged Out No longer eligible based on patient's age to complete this topic RSV Immunizations Under 20 Months Aged Out No longer eligible based on patient's age to complete this topic Procedures Procedure Name Priority Date/Time Associated Diagnosis Comments OUTSIDE CYTOPATH CERV/VAG INTERPRET (PAP) (SCAN ORDER) 03/24/2023 HEPATITIS C ANTIBODY Routine 12/10/2021 7:54 AM CDT Annual physical exam Encounter for medical examination to establish care General medical exam Encounter for hepatitis C screening test for low risk patient from Last 3 Months or Most Recently Relevant to Health Maintenance Results * PAP SMEAR (SCAN ORDER) (03/24/2023) 03/24/2023 [facility] Scanned SCANNING Final Resu lt * HEPATITIS C ANTIBODY (12/10/2021 7:54 AM CDT) HEPATITIS C AB NON-REACTI VE NON-REACT THOMPSON 12/10/2021 7:48 PM CDT [facility] Comment: ANTIBODIES TO HCV NOT DETECTED. DOES NOT EXCLUDE THE POSSIBILITY OF EXPOSURE TO HCV. 12/10/2021 7:54 AM CDT Nickolas Fuller MD LABORATORY Final Result Performing Organization Address City/State/[facility] Co de Phone Number [facility] [address] [place] [phone], [id number] from Last 3 Months or Most Recently Relevant to Health Maintenance Insurance [facility] Care Teams Telegrapher Agent Relationship Specialty Start Date End Date Taylor Escalera MD [address] [facility] [address] [place] [address] PCP - General FAMILY PRACTICE 06/16/24
--- OUTSIDE RECORDS SUMMARY | 2024-12-18 09:58 | XMS_ITS | Referral Summary ---
Author Organization [facility] Address [address] [place] [address] Care Team Providers Care Side Laster Name Role Phone Nickolas Fuller MD Primary Care Provider Allergies No known active allergies Medications tranexamic [...] Next Due Influenza, Unspecified 04/29/2016,03/27/2016, Tdap 01/07/2022 Social History Tobacco Use Types Packs/Day Years [...] 167.6 cm (5' 6) 05/06/2024 11:48 AM FIRE LIEUTENANT Body Mass Index 41.97 05/06/2024 11:48 AM FIRE LIEUTENANT Plan of Treatment Not on file Insurance [facility] CHOICE OOS BLUE ACC CHOICE OOS Care Teams Side Laster Relationship Specialty Start Date End Date Nickolas Fuller MD [address] [place] [address] PCP - General Internal Medicine 02/06/23
--- OUTSIDE RECORDS SUMMARY | 2024-12-18 09:58 | XMS_ITS | Encounter Summary ---
Author Organization [facility] Address [address] [place] [address] Care Team Providers Care Model Set Artist Name Role Phone Nickolas Fuller MD Primary Care Provider [phone] Taylor Escalera MD Primary Care Provider + Encounter Details Date Type Department Care Team (Late st Contact Info) Description 02/26/2023 Identification Solutionst Message Enc [facility] Medical Group Multispecialty Care - [place] [address] [address] [place] [address] Nickolas Fuller MD [address] [place] [address] [address] [place] [address] Iron infusion Social History Tobacco Use Types Packs/Day Years Used Date Smoking Tobacco: Never Smokeless Tobacco: Never Comments:counseled by Dr Vicki mclaughlin Alcohol Use Standard Drinks/Week Comments Not Currently 0 (1 standard drink = 0.6 oz pur e alcohol) PHQ-2 Answer Date Recorded Patient Health Questionnaire-2 Score 4 06/18/2022 Comments No Sex and Gender Information Value Date Recorded Sex Assigned at Not on file Legal Sex Female 2:55 PM CDT Gender Identity Not on file Sexual Orientation Not on file documented as of this encounter Plan of Treatment Not on file documented as of this encounter Visit Diagnoses Not on filedocumented in this encounter Additional Health Concerns Infection Onset Date Last Indicated Resolved Time COVID-19 Rule Out 12/08/2023 12/08/2023 12/08/2023 3:53 PM CDT Assessment Noted Time PHQ-9 Depression Total Score: 14 023 9:24 AM TEST DESK SUPERVISOR documented as of this encounter Care Teams Model Set Artist Relationship Specialty Start Date End Date Nickolas Fuller MD [address] [facility] [address] [place] [address] PCP - General INTERNAL MEDICINE 12/10/21 06/15/24 Taylor Escalera MD [address] [facility] [address] [place] [address] PCP - General FAMILY PRACTICE 06/16/24 documented as of this encounter
--- OUTSIDE RECORDS SUMMARY | 2024-12-18 09:58 | XMS_ITS | Clinical Summary ---
Author Organization [facility] Address [address] [facility] [place] [address] Phone Care Team Providers Care Php Developer Name Role Phone Nickolas Fuller MD Primary Care Provider [phone] Emeka Byrd MD Unavailable Social History Tobacco Use Types Packs/Day Years Used Date Smoking Tobacco: Never Assessed Comments Unknown Sex and Gender Information Value Date Recorded Sex Assigned at Not on file Legal Sex Female 2:13 PM CDT Gender Identity Not on file Sexual Orientation Not on file Plan of Treatment Health Maintenance Due Date Last Done Comments Hepatitis C Virus (HCV) Screening 1991 Human Papillomavirus (HPV) Immunization (1 - 3-dose series) 2006 Hepatitis B Immunization (1 of 3 - 19+ 3-dose series) 2010 Pap Smear 02/29/2012 Cervical Cancer Screening (CCS) 2021 HPV/Cotest 2021 SARS-COV-2 Immunization ( season) 2024 Influenza Immunization (#1) 2025 Respiratory Syncytial Virus (RSV) Immunization (Adult) (1 - 1-dose 75+ series) 2066 TdaP Immunization Completed 01/07/2022 Meningococcal Immunization (ACWY) Aged Out No longer eligible based on patient's age to complete this topic Pneumococcal Immunization Combined Aged Out No longer eligible based on patient's age to complete this topic Rotavirus Immunization Aged Out No lo nger eligible based on patient's age to complete this topic Care Teams Php Developer Relationship Specialty Start Date End Date Nickolas Fuller MD [address] [facility] [address] [place] [address] PCP - General Internal Medicine 02/04/23 Emeka Byrd MD [address] [place] [address] Consulting Physician Oncology 02/04/23
--- OUTSIDE RECORDS SUMMARY | 2024-12-18 09:58 | XMS_ITS | Encounter Summary ---
Author Organization [facility] Address [address] [place] [address] Care Team Providers Care Chief Airport Guide Name Role Phone Nickolas Fuller MD Primary Care Provider [phone] Taylor Escalera MD Primary Care Provider + Encounter Details Date Type Department Care Team (Late st Contact Info) Description 02/23/[address] [facility] [place] [address] Nickolas Fuller MD [address] [address] Social History Tobacco Use Types Packs/Day Years [...] Depression Total Score: 14 023 9:24 AM GLOBAL PRODUCT MANAGER documented as of this encounter Care Teams Chief Airport Guide Relationship Specialty Start Date End Date Nickolas Fuller MD [address] [facility] [address] [place] [address] PCP - General INTERNAL MEDICINE 12/10/21 06/15/24 Taylor Escalera MD [address] [facility] [address] [place] [address] PCP - General FAMILY PRACTICE 06/16/24 documented as of this encounter
[2024-12-18 10:03] VITALS: BP 145/85; PULSE 80; RESP 16; TEMP 36.5; O2SAT 98
--- OUTSIDE RECORDS SUMMARY | 2024-12-18 11:22 | XMS_ITS | Clinical Summary ---
Author Organization [facility] Address [address] [place] [address] Care Team Providers Care Customer Service Correspondence Clerk Name Role Phone Taylor Escalera MD Primary [...] Comments Blood Pressure 141/84 07/13/2024 10:01 AM FOOD SAFETY COORDINATOR Pulse 88 07/13/2024 10:01 AM FOOD SAFETY COORDINATOR Temperature 36.4 C (97.6 F) 07/13/2024 10:01 AM FOOD SAFETY COORDINATOR Respiratory Rate 20 07/06/2024 10:28 AM FOOD SAFETY COORDINATOR Oxygen Saturation 96% 07/13/2024 10:01 AM FOOD SAFETY COORDINATOR Inhaled Oxygen Concentration - - Weight 128.4 kg (283 lb) 06/29/2024 11:16 AM FOOD SAFETY COORDINATOR Height 167.6 cm (5' 6) 06/29/2024 11:16 AM FOOD SAFETY COORDINATOR Body Mass Index 45.68 06/29/2024 11:16 AM FOOD SAFETY COORDINATOR Plan of Treatment Health Maintenance Due Date [...] 01/07/2022 Hepatitis C Completed 12/10/2021 PHQ-2 (Physician Wheeler) Completed 06/16/2024 Meningococcal B Vaccine Aged Out [...] VE NON-REACT THOMPSON 12/10/2021 7:48 PM CDT [facility] Comment: ANTIBODIES TO HCV NOT DETECTED. DOES NOT EXCLUDE THE POSSIBILITY OF EXPOSURE TO HCV. 12/10/2021 7:54 AM CDT Nickolas Fuller MD LABORATORY Final Result Performing Organization Address City/State/[facility] Co de Phone Number [facility] [address] [place] [phone], [id number] from Last 3 Months or Most Recently Relevant to Health Maintenance Insurance [facility] Care Teams Customer Service Correspondence Clerk Relationship Specialty Start Date End Date Taylor Escalera MD [address] [facility] [address] [place] [id number] PCP - General FAMILY PRACTICE 06/16/24
--- OUTSIDE RECORDS SUMMARY | 2024-12-18 11:22 | XMS_ITS | Encounter Summary ---
Author Organization [facility] Address [address] [place] [address] Care Team Providers Care High School Library Media Specialist Name Role Phone Nickolas Fuller MD Primary Care Provider [phone] Taylor Escalera MD Primary Care Provider + Encounter Details Date Type Department Care Team (Late st Contact Info) Description 02/23/2023 Therapy Plan [facility] [place] [address] Nickolas Fuller MD [address] [address] Social History Tobacco Use Types [...] Depression Total Score: 14 023 9:24 AM BABY SITTER documented as of this encounter Care Teams High [employer] Library Media Specialist Relationship Specialty Start Date End Date Nickolas Fuller MD 1188 [facility] [address] [place] [address] PCP - General INTERNAL MEDICINE 12/10/21 06/15/24 Taylor Escalera MD [address] [facility] [address] [place] [address] PCP - General FAMILY PRACTICE 06/16/24 documented as of this encounter
--- OUTSIDE RECORDS SUMMARY | 2024-12-18 11:22 | XMS_ITS | Clinical Summary ---
Author Organization [facility] Address [address], [facility] [address] [place] [address] Phone Care Team Providers Care Signals Intelligence Superintendent Name Role Phone Nickolas Fuller MD Primary Care Provider [phone] Emeka Byrd MD Unavailable Social History Tobacco [...] age to complete this topic Care Teams Signals Intelligence Superintendent Relationship Specialty Start Date End Date Nickolas Fuller MD 4[address] [facility] [address] [place] [address] PCP - General Internal Medicine 02/04/23 Emeka Byrd MD [address] [place] [address] Consulting Physician Oncology 02/04/23
--- OUTSIDE RECORDS SUMMARY | 2024-12-18 11:22 | XMS_ITS | Encounter Summary ---
Author Organization [facility] Address [address] [place] [address] Care Team Providers Care Spring Internship Name Role Phone Nickolas Fuller MD Primary Care Provider [phone] Taylor Escalera MD Primary Care Provider + Encounter Details Date Type Department Care Team (Late st Contact Info) Description 02/26/2023 galaxyadvisorst Message Enc [facility] Multispecialty Care - [place] [address] [address] [address] [place] [address] Nickolas Fuller MD [address] [place] [address] [address] [place] [address] Iron infusion Social History Tobacco [...] Depression Total Score: 14 023 9:24 AM CORONARY CLINICAL SPECIALIST documented as of this encounter Care Teams [employer] Relationship Specialty Start Date End Date Nickolas Fuller MD [address] [facility] [address] [place] [address] PCP - General INTERNAL MEDICINE 12/10/21 06/15/24 Taylor Escalera MD 7342 [facility] [address] [place] [address] PCP - General FAMILY PRACTICE 06/16/24 documented as of this encounter
--- OUTSIDE RECORDS SUMMARY | 2024-12-18 11:22 | XMS_ITS | Clinical Summary ---
Author Organization [facility] Address [address] [place] [address] Care Team Providers Care Blade Grinder Name Role Phone Nickolas Fuller MD Primary Care Provider [phone] Allergies No known active allergies Medications tranexamic [...] 167.6 cm (5' 6) 05/06/2024 11:48 AM MUSIC MINISTRIES DIRECTOR Body Mass Index 41.97 05/06/2024 11:48 AM MUSIC MINISTRIES DIRECTOR Plan of Treatment Health Maintenance Due Date [...] patient's age to complete this topic Insurance [email or web address] Care Teams Blade Grinder Relationship Specialty Start Date End Date Nickolas Fuller MD [address] [place] [address] PCP - General Internal Medicine 02/06/23
--- OUTSIDE RECORDS SUMMARY | 2024-12-18 11:22 | XMS_ITS | Encounter Summary ---
Author Organization [facility] Address [address] [place] [address] Care Team Providers Care Stock Order Lister Name Role Phone Nickolas Fuller MD Primary Care Provider [phone] Taylor Escalera MD Primary Care Provider + Encounter Details Date Type Department Care Team (Late st Contact Info) Description 06/09/2022 MyChart Message Enc [facility] Medical Group Multispecialty Care - [address] [address] [address] [place] [address] Nickolas Fuller MD [address] [place] [address] [address] [place] [address] Weight loss Social History Tobacco [...] Coronavirus/COVID-19? No / Unsure 05/16/2022 2:45 PM PSYCH THERAPIST documented as of this encounter Plan of Treatment Not on file documented as of this encounter Visit Diagnoses Not on filedocumented in this encounter Additional Health Concerns Infection Onset Date Last Indicated Resolved Time COVID-19 Rule Out 12/08/2023 12/08/2023 12/08/2023 3:53 PM CDT documented as of this encounter Care Teams Stock Order Lister Relationship Specialty Start Date End Date Nickolas Fuller MD 118[address] [facility] [address] [place] [address] PCP - General INTERNAL MEDICINE 12/10/21 06/15/24 Taylor Escalera MD [address]342 [facility] [address] [place] [address] PCP - General FAMILY PRACTICE 06/16/24 documented as of this encounter
--- OUTSIDE RECORDS SUMMARY | 2024-12-18 11:23 | XMS_ITS | Encounter Summary ---
Author Organization [facility] Address [address] [place] [address] Care Team Providers Care Landscape And Yardwork Laborer Name Role Phone Nickolas Fuller MD Primary Care Provider [phone] Taylor Escalera MD Primary Care Provider + Encounter Details Date Type Department Care Team (Late st Contact Info) Description 02/14/2022 MyChart Message Enc [facility] Medical [facility] Multispecialty Care - [place] [address] [address] [address] [place] [address] Nickolas Fuller MD [address] [place] [address] [address] [place] [address] Leg pain Social History Tobacco Use Types Packs/Day Years Used Date Smoking Tobacco: Never Smokeless Tobacco: Never Comments:counseled by Dr Vicik mclaughlin Alcohol Use Standard Drinks/Week Comments Not [...] documented as of this encounter Care Teams Landscape And Yardwork Laborer Relationship Specialty Start Date End Date Nickolas Fuller MD [address] [facility] [address] [place] [address] PCP - General INTERNAL MEDICINE 12/10/21 06/15/24 Taylor Escalera MD [address] [facility] [address] [place] [address] PCP - General FAMILY PRACTICE 06/16/24 documented as of this encounter
--- OUTSIDE RECORDS SUMMARY | 2024-12-18 11:23 | XMS_ITS | Referral Summary ---
Author Organization [facility] Address [address] [place] [address] Care Team Providers Care Patent Legal Assistant Name Role Phone Nickolas Fuller MD Primary Care Provider [phone] Allergies No known active allergies Medications tranexamic [...] 167.6 cm (5' 6) 05/06/2024 11:48 AM CIVILIAN JAIL OFFICER Body Mass Index 41.97 05/06/2024 11:48 AM CIVILIAN JAIL OFFICER Plan of Treatment Not on file Insurance [facility] CHOICE OOS BLUE [employer] CHOICE OOS Care Teams Patent Legal Assistant Relationship Specialty Start Date End Date Nickolas Fuller MD [address] [place] [address] PCP - General Internal Medicine 02/06/23
--- OUTSIDE RECORDS SUMMARY | 2024-12-18 11:23 | XMS_ITS | Encounter Summary ---
Author Organization [facility] Address [address] [place] [address] Care Team Providers Care Line Assembler Name Role Phone Nickolas Fuller MD Primary Care Provider Taylor Escalera MD Primary Care Provider + Encounter Details Date Type Department Care Team (Late st Contact Info) Description 01/08/2022 Therapy Plan [facility] [place] [address] Jerson Kaufman, DO [address] [place] [address] Social History Tobacco Use Types Packs/Day Years [...] documented as of this encounter Care Teams Line Assembler Relationship Specialty Start Date End Date Nickolas Fuller MD 1188 [facility] [address] [place] [address] PCP - General INTERNAL MEDICINE 12/10/21 06/15/24 Taylor Escalera MD 7342 [facility] [address] [place] [address] PCP - General FAMILY PRACTICE 06/16/24 documented as of this encounter
[2024-12-18 11:33] VITALS: BP 131/77; PULSE 80; RESP 20; O2SAT 99
[2024-12-18] MEDS: OXYMETAZOLINE HCL 0.05% NAS 15 ML BTL (*BKC) 3 SPRAY NASAL (11:46)
--- NOTE | 2024-12-18 11:52 | ED_ITS ---
HPI - Epistaxis General Chief complaint: Epistaxis Stated complaint: NOSE BLEEDING Time Seen by Provider: 12/18/24 10:20 History of Present Illness HPI Narrative: 34-year-old otherwise healthy female presenting to the emergency department with nontraumatic epistaxis from her left nares. Patient presents to the emergency department approximately 25 minutes after onset of small amount of epistaxis from her left nose. She states that she felt some itchiness sensations in her left nostril and scratched it and then had some bleeding. Bleeding has slowed down after applying an ice pack to the bridge of the nose and having a nasal clip placed in triage. No direct trauma or any insertion into the nostril. No headache or vision changes. No blood in the back of the oropharynx or swallowing blood. No other symptoms. Patient is otherwise in her normal state of health. No history of severe epistaxis or any nasal injuries previously. Related Data Home Medications ?Medication ?Instructions ?Recorded ?Confirmed ?Last Taken ?Type Multivitamin W/Vitamin C 11/30/20 Unknown History Allergies Allergy/AdvReac Type Severity Reaction Status Date / Time No Known Allergies Allergy Verified 12/18/24 09:56 Review of Systems Review of Systems: As reviewed [facility] Past Medical History Medical History Anemia Abnormal uterine bleeding Fibroids Social History Social History Smoking status: Never smoker Alcohol intake: never Substance use: never Gender identity (if verbalized by the patient): Female Exam Narrative: GENERAL: [Well-appearing, well-nourished, and in no acute distress.] HEAD: [Normocephalic, atraumatic.] EYES: [PERRLA and EOMI.] ENT: Nares clear, no rhinorrhea or epistaxis. Mucous membranes moist. Anterior foci of recent bleeding from the left naris, no bleeding in the right knee area. No posterior oropharyngeal erythema or bleeding. No lymphadenopathy. NECK: Supple. CHEST: Symmetric chest rise, no respiratory distress HEART: Regular rate and rhythm EXTREMITIES: Normal range of motion. [No edema.] SKIN: Warm, dry, no rash. NEURO: [No focal deficits]. Alert and oriented [x3.] PSYCH: [Normal mood and affect.] Course Vital Signs Vital signs: Vital Signs Temperature 36.5 C 12/18/24 10:03 Pulse Rate 80 12/18/24 10:03 Respiratory Rate 16 12/18/24 10:03 Blood Pressure 145/85 H 12/18/24 10:03 Pulse Oximetry 98 12/18/24 10:03 Oxygen Delivery Room Air 12/18/24 10:03 Temperature 36.5 C 12/18/24 10:03 Pulse Rate 80 12/18/24 11:33 Respiratory Rate 20 12/18/24 11:33 Blood Pressure 131/77 12/18/24 11:33 Pulse Oximetry 99 12/18/24 11:33 Oxygen Delivery Room Air 12/18/24 10:03 Procedures Epistaxis Control left: Epistaxis Control Date: 12/18/24 Epistaxis Control Time: 11:53 Time Out Performed: Yes Nose Prepped With: oxymetazoline Direct Inspection: yes Clots Removed by: manually Cautery Used: none Device Inserted: other (Nasal clips) Patient Tolerated Procedure: well and no complications MDM - Epistaxis MDM Narrative Medical decision making narrative: 34-year-old otherwise healthy female presenting to the emergency department with nontraumatic epistaxis from her left nares. Patient presents to the emergency department approximately 25 minutes after onset of small amount of epistaxis from her left nose. She states that she felt some itchiness sensations in her left nostril and scratched it and then had some bleeding. Bleeding has slowed down after applying an ice pack to the bridge of the nose and having a nasal clip placed in triage. No direct trauma or any insertion into the nostril. No headache or vision changes. No blood in the back of the oropharynx or swallowing blood. No other symptoms. Patient is otherwise in her normal state of health. No history of severe epistaxis or any nasal injuries previously. Patient was given several sprays of Afrin into the naris with good control the bleeding. Patient will be sent home with this medication and instructions on its use. Patient comfortable the plan and safe for discharge home at this time. Medical Records Attestation: I reviewed the patient's medical records. Discharge Plan Discharge Clinical Impression: Epistaxis Patient Disposition: Home Condition: Stable Instructions: Antibiotic Form, Nosebleed (ED) Additional Instructions: Use the Afrin into the nose that is bleeding and applied direct pressure on nasal bridge. You can also apply ice pack to the nasal bridge and the back of the neck if needed. Return with any emergent concerns otherwise follow-up with regular doctor. Patient Language: Greenlandic Prescriptions: No Action metoclopramide HCl [Reglan] 10 mg tablet 10 mg PO Q6H 7 Days Qty: 28 0RF Multivitamin W/Vitamin C Follow-up/Referrals: Jonny,MD Nickolas [Primary Care Provider] - Time of Disposition: 11:55
== END 2024-12-18 12:14 | disposition home or self-care (01) ==
PROVIDERS: Emergency Provider Student in an Organized Health Care Education/Training Program; PCP Internal Medicine
DX: R04.0 Epistaxis (principal); Z86.2 Personal history of diseases of the blood and blood-forming organs and certain disorders involving the immune mechanism
CPT/HCPCS: 99283; A9270